=== PATIENT | female | born 1955 | race Caucasian/White ===

== ENCOUNTER → 2017-08-23 | Outpatient (REF) | payer OTHER | LOC: M LAB REF 15:48 | DX: R50.9 Fever, unspecified (principal); R05 Cough ==

== ENCOUNTER 2021-02-16 15:11 | Inpatient (IN) | payer MEDICARE, OTHER ==
[~2021-02-16] VITALS: Ht 170.2 cm; Wt 91.2 kg
[2021-02-16] MEDS ORDERED: NS 1,000 ML IV ONE (16:20)
[2021-02-16] MEDS ORDERED: RAMI1CAP21 PO (16:46)
[2021-02-16] MEDS ORDERED: ERGO500029 PO (16:46)
[2021-02-16 16:57] LABS: HEMATOCRIT 42.8 % (36.0-47.0); HEMOGLOBIN 14.5 g/dl (12.0-15.5); MEAN CORPUSCULAR HEMOGLOBIN 30.6 pg (27.0-33.0); MEAN CORPUSCULAR HGB CONC 33.9 g/dl (32.0-36.5); MEAN CORPUSCULAR VOLUME 90.3 fl (80.0-96.0); PLATELET COUNT, AUTOMATED 236 10^3/uL (150-450); RED BLOOD COUNT 4.74 10^6/uL (4.00-5.40); WHITE BLOOD COUNT 9.6 10^3/uL (4.0-10.0)
[2021-02-16 16:59] LABS: VENOUS BASE EXCESS 0.6 (-2.0-2.0); VENOUS HCO3 24.5 MEQ/L (23.0-27.0); VENOUS O2 SATURATION 97.4 % (60.0-80.0); VENOUS PARTIAL PRESSURE CO2 37.4 mmHg (38.0-50.0); VENOUS PARTIAL PRESSURE O2 94.8 mmHg (30.0-50.0); VENOUS PH 7.435 UNITS (7.330-7.430); VENOUS TOTAL CO2 25.7 MEQ/L (24.0-28.0)
[2021-02-16 17:22] LABS: HEMOGLOBIN A1c 12.1 %
[2021-02-16 17:26] LABS: CALCIUM LEVEL 9.6 MG/DL (8.8-10.2); CREATININE FOR GFR 1.44 MG/DL (0.55-1.30); GLOMERULAR FILTRATION RATE 38.9 (>45); POTASSIUM SERUM 5.3 MEQ/L (3.5-5.1)
[2021-02-16] MEDS ORDERED: HumuLIN R (REGULAR) INSULIN (NovoLIN R) **100U/ML** PER UNIT IV ONE (17:40)
[2021-02-16] MEDS ORDERED: MAALOX 30 ML SUSP *UDC PO PRN (17:50)
[2021-02-16] MEDS ORDERED: MOM 30ML SUSPENSION UDC PO PRN (17:50)
[2021-02-16] MEDS ORDERED: RAMI1CAP22 PO (17:50)
[2021-02-16] MEDS ORDERED: ACETAMINOPHEN TAB 650MG DOSE (2X325MG) PO PRN (17:50)
[2021-02-16] MEDS ORDERED: GLUCOSE 4GM CHEW TABLET PO PRN (17:55)
[2021-02-16] MEDS ORDERED: DEXTROSE 50% 50 ML SYRINGE IV PRN (17:55)
[2021-02-16] MEDS ORDERED: GLUCAGON INJ 1MG VIAL SC PRN (17:55)
--- NOTE | 2021-02-16 17:59 | REP ---
INDICATION: MEHUL. COMPARISON: Comparison chest x-ray is from January 24, 2006.. TECHNIQUE: Portable semi-erect AP chest radiograph. FINDINGS: EKG monitoring electrodes overlie the chest. The lungs are well inflated and clear. The pleural angles are sharp. Heart size is normal. Pulmonary vasculature is not increased. No acute bony abnormality is seen. IMPRESSION: No active disease. <Electronically signed by Huey Medrano > 02/16/21 [id number]
[2021-02-16] MEDS: hydrALAZINE 20MG/ML 1ML VIAL (J0360 PER 20MG) IV SCH (18:00)
[2021-02-16 18:13] LABS: ACETONE/KETONE 8.78 MG/DL (<2.81)
--- NOTE | 2021-02-16 18:13 | HPEPDOC ---
General Date of Admission Date of Service: Feb 16, 2021 Attending Physician: TANIYA LYNCH MD Chief Complaint The patient is a 65-year-old female admitted with a reason for visit of Blood Sugar Issue. Source: Patient Exam Limitations: No limitations Timing/Duration: Other (Unknown) History of Present Illness This is 65 years old female with past medical history of hypertension and history of multiple surgeries was seen by her medical doctor recently and was evaluated for diabetes mellitus as patient complaining of excessive thirst [place] and polyuria. Patient also has lost about 13 pounds recently she was supposed to see her doctor but he was not available so she ended up coming to the ER patient is being admitted with new onset diabetes mellitus. Home Medications Scheduled Ergocalciferol (Vitamin D2) (Vitamin D2) 50,000 Units Cap, 50,000 UNITS PO QWEEK, (Reported) WEDNESDAYS Ramipril (Ramipril) 2.5 Mg Capsule, 2.5 MG PO DAILY, (Reported) Allergies Coded Allergies: Penicillins (Verified Allergy, Unknown, HIVES, 02/16/21) Past Medical History Medical History Hypertension vitamin D deficiency,, benign pituitary adenoma Surgical History Tubal ligation, hysterectomy, tonsillectomy, Social History * Smoker: Denies Alcohol: Denies Drugs: denies A-FIB/CHADSVASC A-FIB History Current/History of A-Fib/PAF?: No Review of Systems Constitutional: Denies: Chills, Fever, Malaise, Night Sweats, Weakness, Fatigue, Weight Loss, Lethargy, Other Eyes: Denies: Pain, Vision change, Conjunctivae inflammation, Eyelid inflammation, Redness, Other ENT: Denies: Head Aches, Ear Pain, Dysphagia, Sinus Congestion, Post Nasal Drip, Sore Throat, Epistaxis, Other Symptoms Skin: Denies: Rash, Lesions, Jaundice, Bruising, Itching, Dry, Breakdown, Nail Changes, Other Pulmonary: Denies: Dyspnea, Cough, Pleuritic Chest Pain, Other Symptoms Cardiovascular: Denies: Chest Pain, Palpitations, Orthopnea, Paroxysmal Noc. Dyspnea, Edema, Lt Headedness, Other Symptoms Gastrointestinal: Denies: Nausea, Vomiting, Abdominal Pain, Diarrhea, Constipation, Melena, Hematochezia, Other Symptoms Genitourinary: Reports: Other Symptoms (Polyuria) Hematologic: Denies: Bruising, Bleeding Excessively, Petecchia, Purpura, Enlarged Lymph Nodes, Other Hematologic Endocrine: Reports: Polydipsia, Polyuria, Other Endocrine Sx (Weight loss) Musculoskeletal: Denies: Neck Pain, Back Pain, Shoulder Pain, Arm Pain, Hand Pain, Leg Pain, Foot Pain, Joint Pain, Muscle Pain, Spasms, Other Symptoms Neurological: Denies: Weakness, Numbness, Incoordination, Change in speech, Confusion, Seizures, Other Symptoms Psych: Denies: Mood Normal, Anxiety, Depression, Memory Issues, Thoughts of Self Harm, Anger, Thoughts of Harming Other, Other Psych Physical Examination General Exam: Positive: Alert, Cooperative Eye Exam: Positive: PERRLA ENT Exam: Positive: Atraumatic Neck Exam: Positive: Supple Heart Exam: Positive: Rate Normal, Normal S1, Normal S2 Abdomen Exam: Positive: Normal bowel sounds, Soft Extremity Exam: Positive: Other (No clubbing cyanosis or edema) Skin Exam: Positive: Nl turgor and temperature Neuro Exam: Positive: Other (No motor or sensory deficit noted) Psych Exam: Positive: Mood NL, Oriented x 3 Vital Signs Vital Signs Date Time Temp Pulse Resp B/P (MAP) Pulse Ox O2 Delivery O2 Flow Rate FiO2 02/16/21 17:21 176/91 (119) 02/16/21 17:11 91 92 02/16/21 16:40 16 Room Air 02/16/21 15:11 97.4 Laboratory Data Labs 24H Laboratory Tests 2 02/16/21 16:34: Nucleated Red Blood Cells % (auto) 0.0, Blood Gas Bicarbonate Standard 25.0, Venous Blood pH 7.435H, Venous Blood Partial Pressure CO2 37.4L, Venous Blood Partial Pressure O2 94.8H, Venous Blood Total Carbon Dioxide 25.7, Venous Blood HCO3 24.5, Venous Blood Oxygen Saturation 97.4H, Venous Blood Base Excess 0.6, Anion Gap 10, Glomerular Filtration Rate 38.9L, Estimated Mean Plasma Glucose 301H, Hemoglobin A1c 12.1, Calcium Level 9.6 CBC/BMP Laboratory Tests 02/16/21 16:34 Problems (1) New onset type 2 diabetes mellitus Status: Acute (2) Uncontrolled hypertension Status: Acute (3) MEHUL (acute kidney injury) Status: Acute Plan / VTE VTE Prophylaxis Ordered?: Yes Plan Plan This is 65 years old female with past medical history of hypertension and history of multiple surgeries was seen by her medical doctor recently and was evaluated for diabetes mellitus as patient complaining of excessive thirst, dry mouth and polyuria. Patient also has lost about 13 pounds in 1 month, she was supposed to see her doctor but he was not available so she ended up coming to the ER patient is being admitted with new onset diabetes mellitus. On examination patient's heart rate is 91, blood pressure 176/91 pulse ox 92 respiratory rate of 18 WBC count 9.6 hemoglobin 14.4 hematocrit 42.8 platelets 236 Electrolytes show sodium 123 most likely secondary to pseudohyponatremia, potassium is 5.3 BUN is 33 creatinine 1.44 AUGIE globin A1c is 12.1 In the ED patient received 1 L of normal saline and 8 units of regular insulin IV Admit patient to [facility] floor with telemetry secondary to uncontrolled hypertension IV fluids normal saline at 150 cc/h Start customized fingerstick blood sugar coverage as per orders Fingerstick blood sugar every 4 hours for at least 24 to 48 hours till the req uirement for insulin is calculated Also will start patient on Norvasc 5 mg p.o. now for hypertension as well as hydralazine as needed Once the patient's blood sugar is under control then I will decide whether she has to be placed on insulin or she can be discharged on oral hypoglycemic agents also depends on patient's input regarding this matter. We will hold SAUL inhibitor until her renal function improved we will restart it We will also get a lipid profile and start statins if needed Diet exercise counseling done DVT prophylaxis with the Lovenox Diet is diabetic diet Plan of care discussed with patient and her at the bedside TANIYA LYNCH MD Feb 16, 2021 18:12
[2021-02-16] MEDS: NS 1,000 ML IV SCH (18:42)
[2021-02-16] MEDS: amLODIPine 5 MG TAB PO SCH (18:43)
[2021-02-16 19:24] LABS: RSV AMPLIFICATION NEGATIVE (NEGATIVE)
[2021-02-16] MEDS ORDERED: HumaLOG INSULIN (NovoLOG) PER UNIT SC ONE (22:15)
[2021-02-16 23:08] LABS: VENOUS BASE EXCESS -1.4 (-2.0-2.0); VENOUS HCO3 23.2 MEQ/L (23.0-27.0); VENOUS O2 SATURATION 96.6 % (60.0-80.0); VENOUS PARTIAL PRESSURE CO2 38.8 mmHg (38.0-50.0); VENOUS PARTIAL PRESSURE O2 88.5 mmHg (30.0-50.0); VENOUS PH 7.394 UNITS (7.330-7.430); VENOUS STANDARD HCO3 23.3 MEQ/L; VENOUS TOTAL CO2 24.4 MEQ/L (24.0-28.0)
[2021-02-16 23:22] VITALS: BP 139/70
[2021-02-16 23:42] LABS: CALCIUM LEVEL 8.9 MG/DL (8.8-10.2); CREATININE FOR GFR 1.11 MG/DL (0.55-1.30); GLOMERULAR FILTRATION RATE 52.5 (>45); POTASSIUM SERUM 4.5 MEQ/L (3.5-5.1)
[2021-02-17] MEDS: hydrALAZINE 20MG/ML 1ML VIAL (J0360 PER 20MG) IV SCH
[2021-02-17] MEDS: HumaLOG INSULIN (NovoLOG) PER UNIT SC SCH ×5 (00:08→20:51)
[2021-02-17] MEDS: NS 1,000 ML IV SCH ×3 (00:09→13:47)
[2021-02-17 00:22] VITALS: BP 139/70
--- NOTE | 2021-02-17 05:37 | ECGEPIP ---
[facility] [place] - ED Test Date: 2021-02-16 Pat Name: PATY ARNETT Department: Room: [place] [address] Gender: Female [employer] Super[employer]: RUTH : 1955 Requested By: Mark Gonsalez Order Number: [id number] Reading MD: Levy Pereira Measurements Intervals [place] Rate: 88 P: 50 WA: 158 QRS: -33 QRSD: 92 T: 38 QT: 356 QTc: 430 Interpretive Statements Normal sinus rhythm Left axis deviation Comparison tracing not on file Electronically Signed on 02-17-2021 5:36:59 EDT by Levy Pereira
[2021-02-17 06:00] VITALS: BP 134/78
[2021-02-17 06:12] LABS: HEMATOCRIT 39.9 % (36.0-47.0); HEMOGLOBIN 13.5 g/dl (12.0-15.5); MEAN CORPUSCULAR HEMOGLOBIN 30.8 pg (27.0-33.0); MEAN CORPUSCULAR HGB CONC 33.8 g/dl (32.0-36.5); MEAN CORPUSCULAR VOLUME 91.1 fl (80.0-96.0); PLATELET COUNT, AUTOMATED 205 10^3/uL (150-450); RED BLOOD COUNT 4.38 10^6/uL (4.00-5.40); WHITE BLOOD COUNT 8.2 10^3/uL (4.0-10.0)
[2021-02-17 06:41] LABS: ALBUMIN 3.3 GM/DL (3.2-5.2); ALT/SGPT 89 U/L (12-78); BILIRUBIN,TOTAL 0.7 MG/DL (0.2-1.0); BLOOD UREA NITROGEN 21 MG/DL (7-18); CALCIUM LEVEL 8.5 MG/DL (8.8-10.2); CARBON DIOXIDE LEVEL 27 MEQ/L (21-32); CHLORIDE LEVEL 105 MEQ/L (98-107); CHOLESTEROL LEVEL 207 MG/DL (<200); CHOLESTEROL RISK RATIO 9.409 (<5); CREATININE FOR GFR 0.89 MG/DL (0.55-1.30); GLOMERULAR FILTRATION RATE > 60.0 (>45); GLUCOSE, FASTING 294 MG/DL (70-100); HDL CHOLESTEROL 22 MG/DL (>40); LDL CHOLESTEROL 108 MG/DL (<100); MAGNESIUM LEVEL 2.5 MG/DL (1.8-2.4); NON-HDL-C 185 MG/DL; SODIUM LEVEL 136 MEQ/L (136-145); TRIGLYCERIDES LEVEL 386 MG/DL (<150)
[2021-02-17] MEDS ORDERED: HumaLOG INSULIN (NovoLOG) PER UNIT SC SCH (07:30)
[2021-02-17 07:39] LABS: FREE T4 0.94 NG/DL (0.76-1.46)
[2021-02-17] MEDS: amLODIPine 5 MG TAB PO SCH (08:17)
[2021-02-17] MEDS: metFORMIN (GLUCOPHAGE) 500MG TAB PO SCH ×2 (08:17→17:36)
[2021-02-17] MEDS: ENOXAPARIN 40MG/0.4ML SYRINGE (J1650 PER 10MG) SC SCH (08:17)
--- NOTE | 2021-02-17 11:02 | IPNPDOC ---
Subjective Date Seen The patient was seen on 02/17/21. Subjective Chief Complaint/HPI Patient feels doing much better blood sugar is slowly decreasing General: Denies: ROS Unobtainable, Chills, Night Sweats, Fatigue, Malaise, Normal Appetite, Other Symptoms Constitutional: Denies: Chills, Fever, Malaise, Night Sweats, Weakness, Fatigue, Weight Loss, Lethargy, Other Pulmonary: Denies: Dyspnea, Cough, Pleuritic Chest Pain, Other Symptoms Cardiovascular: Denies: Chest Pain, Palpitations, Orthopnea, Paroxysmal Noc. Dyspnea, Edema, Lt Headedness, Other Symptoms Gastrointestinal: Denies: Nausea, Vomiting, Abdominal Pain, Diarrhea, Constipation, Melena, Hematochezia, Other Symptoms Musculoskeletal: Denies: Neck Pain, Back Pain, Shoulder Pain, Arm Pain, Hand Pain, Leg Pain, Foot Pain, Joint Pain, Muscle Pain, Spasms, Other Symptoms Neurological: Denies: Weakness, Numbness, Incoordination, Change in speech, Confusion, Seizures, Other Symptoms Objective Physical Examination General Exam: Positive: Alert, Cooperative Heart Exam: Positive: Rate Normal, Normal S1, Normal S2 Abdomen Exam: Positive: Normal bowel sounds, Soft Extremity Exam: Positive: Other (No clubbing cyanosis or edema) Skin Exam: Positive: Nl turgor and temperature Assessment /Plan Problems (1) New onset type 2 diabetes mellitus Status: Acute (2) Uncontrolled hypertension Status: Acute (3) MEHUL (acute kidney injury) Status: Acute Plan/VTE VTE Prophylaxis Ordered?: Yes Plan This is 65 years old female with past medical history of hypertension and history of multiple surgeries was seen by her medical doctor recently and was evaluated for diabetes mellitus as patient complaining of excessive thirst, dry mouth and polyuria. Patient also has lost about 13 pounds in 1 month, she was supposed to see her doctor but he was not available so she ended up coming to the ER patient is being admitted with new onset diabetes mellitus. On examination patient's heart rate is 91, blood pressure 176/91 pulse ox 92 respiratory rate of 18 WBC count 9.6 hemoglobin 14.4 hematocrit 42.8 platelets 236 Electrolytes show sodium 123 most likely secondary to pseudohyponatremia, potassium is 5.3 BUN is 33 creatinine 1.44 AUGIE globin A1c is 12.1 In the ED patient received 1 L of normal saline and 8 units of regular insulin IV Patient was admitted to [facility] floor with a custom written fingerstick blood sugar coverage Patient's last fingerstick was 293, and is progressively improving very well Patient has been started on lisinopril 5 mg p.o. daily as well as Glucophage 500 mg p.o. twice daily, Januvia 25 mg p.o. daily and Lipitor 10 mg p.o. daily I will continue IV fluids for 12 more hours then will DC'd as patient has good oral intake and her polydipsia and polyuria has significantly decreased with the treatment. Patient does have a history of pituitary adenoma we will get MRI without contrast to rule out any concurrent role of pituitary adenoma causing polyuria and polydipsia manifesting as diabetes insipidus. Diet exercise counseling done DVT prophylaxis with the Lovenox Diet is diabetic diet Plan of care discussed with patient at bedside VS, I&O, 24H, [place] Vital Signs/I&O Vital Signs Date Time Temp Pulse Resp B/P (MAP) Pulse Ox O2 Delivery O2 Flow Rate FiO2 02/17/21 08:17 74 146/60 02/17/21 06:00 97.9 20 96 Room Air I&O- Last 24 Hours up to 6 AM 02/17/21 06:00 Intake Total 3200 ml Output Total 650 ml Balance 2550 ml Laboratory Data 24H LABS Laboratory Tests 2 02/16/21 16:34: Nucleated Red Blood Cells % (auto) 0.0, Blood Gas Bicarbonate Standard 25.0, Venous Blood pH 7.435H, Venous Blood Partial Pressure CO2 37.4L, Venous Blood Partial Pressure O2 94.8H, Venous Blood Total Carbon Dioxide 25.7, Venous Blood HCO3 24.5, Venous Blood Oxygen Saturation 97.4H, Venous Blood Base Excess 0.6, Anion Gap 10, Glomerular Filtration Rate 38.9L, Estimated Mean Plasma Glucose 301H, Hemoglobin A1c 12.1, Calcium Level 9.6, B-Hydroxybutyrate 8.78H 02/16/21 18:32: Coronavirus (COVID-19)(PCR) NEGATIVE, Influenza Type A (RT-PCR) NEGATIVE, Influenza Type B (RT-PCR) NEGATIVE, Respiratory Syncytial Virus (PCR) NEGATIVE 02/16/21 20:50: Bedside Glucose (Misc Panel) 489H 02/16/21 22:57: Blood Gas Bicarbonate Standard 23.3, Venous Blood pH 7.394, Venous Blood Partial Pressure CO2 38.8, Venous Blood Partial Pressure O2 88.5H, Venous Blood Total Carbon Dioxide 24.4, Venous Blood HCO3 23.2, Venous Blood Oxygen Saturation 96.6H, Venous Blood Base Excess -1.4, Anion Gap 7L, Glomerular Filtration Rate 52.5, Calcium Level 8.9, Osmolality 313H 02/16/21 23:56: Bedside Glucose (Misc Panel) 505*H 02/17/21 04:15: Bedside Glucose (Misc Panel) 270H 02/17/21 05:59: Nucleated Red Blood Cells % (auto) 0.0, Anion Gap 4L, Glomerular Filtration Rate > 60.0, Calcium Level 8.5L, Magnesium Level 2.5H, Total Bilirubin 0.7, Aspartate Amino Transf (AST/SGOT) 41H, Alanine Aminotransferase (ALT/SGPT) 89H, Alkaline Phosphatase 100, Total Protein 6.0L, Albumin 3.3, Albumin/Globulin Ratio 1.2, Tr iglycerides Level 386H, Total Cholesterol 207H, LDL Cholesterol 108H, Non-HDL Cholesterol (LDL + VLDL) 185, Total HDL Cholesterol 22L, Cholesterol/HDL Ratio 9.409H, Thyroid Stimulating Hormone (TSH) 2.320, Free Thyroxine 0.94 02/17/21 06:21: Bedside Glucose (Misc Panel) 324H CBC/BMP Laboratory Tests 02/16/21 16:34 02/16/21 22:57 02/17/21 05:59 TANIYA LYNCH MD Feb 17, 2021 11:02
[2021-02-17] MEDS ORDERED: PILL CUTTER 1 EACH XX PRN (11:15)
--- NOTE | 2021-02-17 11:25 | REPVR ---
PROCEDURE INFORMATION: Exam: MR Head Without Contrast, Sella Exam date and time: 02/17/2021 9:33 AM Age: 65 years old Clinical indication: Condition or disease; Other: New onset type 2 dm, HX of pitiuitary adenoma; Patient HX: PT states HX of pituitary adenoma for 23yrs that has not changed. ; Additional info: HX of pitutary mass TECHNIQUE: Imaging protocol: MR of the head without contrast. Exam focused on the sella. COMPARISON: CT Head without contrast 12/24/2015 7:49 PM FINDINGS: Brain: There is mild patchy increased T2 signal intensity within the bilateral cerebral periventricular white matter, consistent with chronic microvascular ischemic changes. There are multiple small focal areas of chronic ischemia in bilateral frontal, parietal and periatrial white matter. Chronic ischemic changes/lacunar infarctions are seen in bilateral basal ganglia. There is no abnormal diffusion weighted signal intensity to suggest an acute ischemic event. Cerebral ventricles: The ventricular system is not dilated and is appropriate for the patient's age. Pituitary gland and sella: There is mild asymmetry in the height of the pituitary gland measuring 7 mm on the right and 5 mm on the left on coronal T1 weighted images. This could be secondary to the known history of pituitary microadenoma. However, the microadenoma is not seen on the current study as no intravenous contrast was administered. The pituitary stalk is in the midline. The suprasellar cistern and optic chiasm appear normal. The adjacent cavernous sinuses also appear normal. Bones/joints: Unremarkable. IMPRESSION: 1. No acute infarction, masses or hemorrhage is seen. No acute intracranial abnormality is identified. 2. Diffuse age-related cerebral atrophy and mild chronic microvascular white matter ischemic changes, without evidence of an acute intracranial abnormality. 3. There is mild asymmetry in the height of the pituitary gland measuring 7 mm on the right and 5 mm on the left on coronal T1 weighted images. This could be secondary to the known history of pituitary microadenoma. However, the microadenoma is not seen on the current study as no intravenous contrast was administered. The pituitary stalk is in the midline. The suprasellar cistern and optic chiasm appear normal. The adjacent cavernous sinuses also appear normal. Electronically signed by: Armen Barron On 02/17/2021 11:24:57 AM
[2021-02-17] MEDS ORDERED: PREVNAR 13 VACCINE SYRINGE IM ONE (12:00)
[2021-02-17] MEDS: ramipriL 5 MG CAP PO SCH (12:26)
[2021-02-17] MEDS: SITagliptin 50 MG TAB (JANUVIA) PO SCH (12:26)
[2021-02-17 14:00] VITALS: BP 130/74
[2021-02-17] MEDS: ATORVASTATIN 10 MG TAB PO SCH (20:51)
[2021-02-17 22:00] VITALS: BP 127/72
[2021-02-18] MEDS ORDERED: HumaLOG INSULIN (NovoLOG) PER UNIT SC ONE (05:40)
[2021-02-18 06:00] VITALS: BP 148/78
[2021-02-18 06:31] LABS: BASO % 0.4 % (0.0-1.0); EOS # 0.1 10^3/uL (0.0-0.5); HEMATOCRIT 39.5 % (36.0-47.0); HEMOGLOBIN 13.2 g/dl (12.0-15.5); LYMPH # 1.6 10^3/uL (1.5-5.0); LYMPH % 23.1 % (24.0-44.0); MEAN CORPUSCULAR HEMOGLOBIN 30.8 pg (27.0-33.0); MEAN CORPUSCULAR HGB CONC 33.4 g/dl (32.0-36.5); MEAN CORPUSCULAR VOLUME 92.1 fl (80.0-96.0); MONO # 0.5 10^3/uL (0.0-0.8); MONO % 6.8 % (2.0-8.0); NEUTROPHILS # 4.7 10^3/uL (1.5-8.5); NEUTROPHILS % 68.4 % (36.0-66.0); PLATELET COUNT, AUTOMATED 183 10^3/uL (150-450); RED BLOOD COUNT 4.29 10^6/uL (4.00-5.40); WHITE BLOOD COUNT 6.9 10^3/uL (4.0-10.0)
[2021-02-18 06:58] LABS: ALBUMIN 3.2 GM/DL (3.2-5.2); ALT/SGPT 137 U/L (12-78); BILIRUBIN,TOTAL 0.4 MG/DL (0.2-1.0); BLOOD UREA NITROGEN 12 MG/DL (7-18); CALCIUM LEVEL 8.5 MG/DL (8.8-10.2); CARBON DIOXIDE LEVEL 24 MEQ/L (21-32); CHLORIDE LEVEL 106 MEQ/L (98-107); CREATININE FOR GFR 0.84 MG/DL (0.55-1.30); GLOMERULAR FILTRATION RATE > 60.0 (>45); GLUCOSE, FASTING 383 MG/DL (70-100); POTASSIUM SERUM 4.4 MEQ/L (3.5-5.1); SODIUM LEVEL 134 MEQ/L (136-145); TOTAL PROTEIN 5.7 GM/DL (6.4-8.2)
[2021-02-18] MEDS: SITagliptin 50 MG TAB (JANUVIA) PO SCH (08:26)
[2021-02-18] MEDS: HumaLOG INSULIN (NovoLOG) PER UNIT SC SCH ×4 (08:26→21:16)
[2021-02-18] MEDS: metFORMIN (GLUCOPHAGE) 500MG TAB PO SCH ×2 (08:27→17:42)
[2021-02-18] MEDS: ENOXAPARIN 40MG/0.4ML SYRINGE (J1650 PER 10MG) SC SCH (08:29)
[2021-02-18] MEDS: amLODIPine 5 MG TAB PO SCH (08:29)
[2021-02-18] MEDS: ramipriL 5 MG CAP PO SCH (08:29)
--- NOTE | 2021-02-18 11:27 | IPNPDOC ---
Subjective Date Seen The patient was seen on 02/18/21. Subjective Chief Complaint/HPI Patient is comfortable in no distress her vision is improving as well as her frequency of 1 week duration and increased thirst is improving as well General: Denies: ROS Unobtainable, Chills, Night Sweats, Fatigue, Malaise, Normal Appetite, Other Symptoms Constitutional: Denies: Chills, Fever, Malaise, Night Sweats, Weakness, Fatigue, Weight Loss, Lethargy, Other Pulmonary: Denies: Dyspnea, Cough, Pleuritic Chest Pain, Other Symptoms Cardiovascular: Denies: Chest Pain, Palpitations, Orthopnea, Paroxysmal Noc. Dyspnea, Edema, Lt Headedness, Other Symptoms Gastrointestinal: Denies: Nausea, Vomiting, Abdominal Pain, Diarrhea, Const ipation, Melena, Hematochezia, Other Symptoms Musculoskeletal: Denies: Neck Pain, Back Pain, Shoulder Pain, Arm Pain, Hand Pain, Leg Pain, Foot Pain, Joint Pain, Muscle Pain, Spasms, Other Symptoms Neurological: Denies: Weakness, Numbness, Incoordination, Change in speech, Confusion, Seizures, Other Symptoms Objective Physical Examination General Exam: Positive: Alert, Cooperative Heart Exam: Positive: Rate Normal, Normal S1, Normal S2 Abdomen Exam: Positive: Normal bowel sounds, Soft Extremity Exam: Positive: Other (No clubbing cyanosis or edema) Skin Exam: Positive: Nl turgor and temperature Assessment /Plan Problems (1) New onset type 2 diabetes mellitus Status: Acute (2) Uncontrolled hypertension Status: Acute (3) MEHUL (acute kidney injury) Status: Acute Plan/VTE VTE Prophylaxis Ordered?: Yes Plan This is 65 years old female with past medical history of hypertension and history of multiple surgeries was seen by her medical doctor recently and was evaluated for diabetes mellitus as patient complaining of excessive thirst, dry mouth and polyuria. Patient also has lost about 13 pounds in 1 month, she was supposed to see her doctor but he was not available so she ended up coming to the ER patient is being admitted with new onset diabetes mellitus. On examination patient's heart rate is 91, blood pressure 176/91 pulse ox 92 respiratory rate of 18 WBC count 9.6 hemoglobin 14.4 hematocrit 42.8 platelets 236 Electrolytes show sodium 123 most likely secondary to pseudohyponatremia, potassium is 5.3 BUN is 33 creatinine 1.44 AUGIE globin A1c is 12.1 In the ED patient received 1 L of normal saline and 8 units of regular insulin IV Patient [facility] with a custom written fingerstick blood s ugar coverage Patient's fingersticks are still running higher, today's numbers were 288/389/335, which is not a good control IV fluids were DC'd as patient is not thirsty anymore her symptoms of polydipsia and polyuria are resolving as well as her vision is getting better Patient has been started on lisinopril 5 mg p.o. daily as well as Glucophage 500 mg p.o. twice daily, Januvia 25 mg p.o. daily and Lipitor 10 mg p.o. daily We will continue fingerstick blood sugar before every meal and at bedtime with coverage and will wait at least 48 hours to see how patient is responding to oral hypoglycemic agents including Januvia and Glucophage, if the fingerstick still remains higher after 48 hours then she probably will benefit from long- acting insulin regimen and discharged home on his such. Patient wanted to try oral meds first before she starts taking insulin regularly. MRI of the brain was obtained there is no evidence of micro adenoma I will provide patient with a report of her MRI and she can follow-up with her endocrine at [place]. We will request a dietary and diabetic education consultation DVT prophylaxis with the Lovenox Diet is diabetic diet Possible discharge Saturday VS, I&O, 24H, Fishbone Vital Signs/I&O Vital Signs Date Time Temp Pulse Resp B/P (MAP) Pulse Ox O2 Delivery O2 Flow Rate FiO2 02/18/21 08:29 147/76 02/18/21 08:29 69 02/18/21 06:00 97.8 16 95 Room Air I&O- Last 24 Hours up to 6 AM 02/18/21 06:00 Intake Total 2460 ml Output Total 950 ml Balance 1510 ml Laboratory Data 24H LABS Laboratory Tests 2 02/17/21 12:00: Bedside Glucose (Misc Panel) 292H 02/17/21 14:56: Bedside Glucose (Misc Panel) 299H 02/17/21 17:27: Bedside Glucose (Misc Panel) 323H 02/17/21 20:40: Bedside Glucose (Misc Panel) 288H 02/18/21 05:25: Bedside Glucose (Misc Panel) 389H 02/18/21 05:56: Immature Granulocyte % (Auto) 0.3, Neutrophils (%) (Auto) 68.4H, Lymphocytes (%) (Auto) 23.1L, Monocytes (%) (Auto) 6.8, Eosinophils (%) (Auto) 1.0, Basophils (%) (Auto) 0.4, Neutrophils # (Auto) 4.7, Lymphocytes # (Auto) 1.6, Monocytes # (Auto) 0.5, Eosinophils # (Auto) 0.1, Basophils # (Auto) 0.0, Nucleated Red Bl ood Cells % (auto) 0.0, Anion Gap 4L, Glomerular Filtration Rate > 60.0, Calcium Level 8.5L, Total Bilirubin 0.4, Aspartate Amino Transf (AST/SGOT) 85H, Alanine Aminotransferase (ALT/SGPT) 137H, Alkaline Phosphatase 91, Total Protein 5.7L, Albumin 3.2, Albumin/Globulin Ratio 1.3 02/18/21 08:12: Bedside Glucose (Misc Panel) 335H CBC/BMP Laboratory Tests 02/18/21 05:56 TANIYA LYNCH MD Feb 18, 2021 11:27
[2021-02-18] MEDS ORDERED: PREVNAR 13 VACCINE SYRINGE IM ONE (13:00)
[2021-02-18 14:00] VITALS: BP 134/69
[2021-02-18] MEDS: ATORVASTATIN 10 MG TAB PO SCH (21:16)
[2021-02-18 22:00] VITALS: BP 123/77
[2021-02-19 06:00] VITALS: BP 137/75
[2021-02-19 06:13] LABS: BASO % 0.3 % (0.0-1.0); EOS # 0.1 10^3/uL (0.0-0.5); EOS % 1.7 % (0.0-3.0); HEMATOCRIT 38.8 % (36.0-47.0); HEMOGLOBIN 13.3 g/dl (12.0-15.5); LYMPH % 27.5 % (24.0-44.0); MEAN CORPUSCULAR HGB CONC 34.3 g/dl (32.0-36.5); MEAN CORPUSCULAR VOLUME 90.4 fl (80.0-96.0); MONO # 0.5 10^3/uL (0.0-0.8); MONO % 7.5 % (2.0-8.0); NEUTROPHILS # 4.5 10^3/uL (1.5-8.5); NEUTROPHILS % 62.7 % (36.0-66.0); PLATELET COUNT, AUTOMATED 159 10^3/uL (150-450); RED BLOOD COUNT 4.29 10^6/uL (4.00-5.40); WHITE BLOOD COUNT 7.2 10^3/uL (4.0-10.0)
[2021-02-19 06:40] LABS: ALT/SGPT 123 U/L (12-78); BILIRUBIN,TOTAL 0.4 MG/DL (0.2-1.0); BLOOD UREA NITROGEN 14 MG/DL (7-18); CALCIUM LEVEL 8.6 MG/DL (8.8-10.2); CARBON DIOXIDE LEVEL 22 MEQ/L (21-32); CHLORIDE LEVEL 105 MEQ/L (98-107); CREATININE FOR GFR 0.75 MG/DL (0.55-1.30); GLOMERULAR FILTRATION RATE > 60.0 (>45); GLUCOSE, FASTING 360 MG/DL (70-100); POTASSIUM SERUM 4.2 MEQ/L (3.5-5.1); SODIUM LEVEL 133 MEQ/L (136-145); TOTAL PROTEIN 5.5 GM/DL (6.4-8.2)
[2021-02-19] MEDS: HumaLOG INSULIN (NovoLOG) PER UNIT SC SCH ×4 (08:07→20:29)
[2021-02-19] MEDS: SITagliptin 50 MG TAB (JANUVIA) PO SCH (08:08)
[2021-02-19] MEDS: metFORMIN (GLUCOPHAGE) 500MG TAB PO SCH ×2 (08:08→17:35)
[2021-02-19] MEDS: ENOXAPARIN 40MG/0.4ML SYRINGE (J1650 PER 10MG) SC SCH (08:09)
[2021-02-19] MEDS: ramipriL 5 MG CAP PO SCH (08:10)
[2021-02-19] MEDS: amLODIPine 5 MG TAB PO SCH (08:11)
[2021-02-19 14:00] VITALS: BP 113/62
--- NOTE | 2021-02-19 15:07 | IPNPDOC ---
Text Note Date of Service The patient was seen on 02/19/21. NOTE SUBJECTIVE: Patient reports multiple loose stools since starting Metformin including one episode of incontinence, otherwise denies n/v and states that her polyuria and polydipsia have resolved. PHYSICAL EXAMINATION: VITAL SIGNS: see below GENERAL APPEARANCE: Obese older female, sitting up in chair, NAD, appears younger than stated age. HEENT: Atraumatic, normocephalic. Eyes are anicteric. Mucous membranes are pink and moist CARDIOVASCULAR: NSR, regular rhythm, no noted murmurs LUNGS: CTAB ABDOMEN: Normoactive sounds, soft, nondistended. No rebound tenderness or guard ing. EXTREMITIES: No lower extremity edema, no apparent rashes/petechiae. NEUROLOGICAL: Awake, speech is clear, AOx3 LABORATORY STUDIES: See below RADIOLOGY STUDIES: No recent ASSESSMENT: Ms. Ovalle is a 65 year old morbidly obese female with newly diagnosed DM2 admitted for glucose management and insulin titration. PLAN: # DM2 with continued hyperglycemia: Patient has been started on Metformin and Januvia as well as ISS however continues to have FSBG over 300 despite use of 26U ISS in the past 24 hours. Have spoken with her about the need to initiate basal insulin which she agrees to. Will start this tonight at 15U ISS and likely transition to scheduled mealtime insulin. Patient's HA1c is 12 and have discussed with her the meaning of this value. Have also discussed importance of exercise in glucose management and alleviating insulin resistance as well as provided local resources for walking groups in [facility]. Patient has also been experiencing multiple loose bowel movements since starting Metformin. Will decrease dose to 250mg BID and see if this improves her symptoms. Meds: Metformin 250mg BID Januvia 25mg daily Levemir 15U QHS ISS AC/HS FSBG AC/HS Diabetic nurse educator Dietary consult # Obesity: Have discussed with patient importance of weight management to reduce insulin resistance in the setting of DM2. Also notified patient that metformin can help with weight loss. Dietary consult placed # HTN: Continue home Amlodipine, Ramipril # HLD: Continue home Atorvastatin DISPOSITION: Med/Surg DIET: consistent carbohydrate DVT PROPHY: Lovenox CONSULTS: Dietary DISCHARGE: d/c to home following improvement in FSBG, possible 1-2 more days VS,Fishbone, I+O VS, Fishbone, I+O Laboratory Tests 02/19/21 05:54 Vital Signs Date Time Temp Pulse Resp B/P (MAP) Pulse Ox O2 Delivery O2 Flow Rate FiO2 02/19/21 14:00 98.0 78 16 113/62 (79) 96 Room Air I&O- Last 24 Hours up to 6 AM 02/19/21 06:00 Intake Total 2030 ml Output Total 2375 ml Balance -345 ml RAQUEL MONTALVO MD [facility] Feb 19, 2021 15:07
[2021-02-19] MEDS: ATORVASTATIN 10 MG TAB PO SCH (20:27)
[2021-02-19] MEDS ORDERED: LEVEMIR (INSULIN DETEMIR) 1 UNITS/0.01ML SC SCH (21:00)
[2021-02-19 22:00] VITALS: BP 132/82
[2021-02-20 06:00] VITALS: BP 128/80
--- NOTE | 2021-02-20 07:22 | IPNPDOC ---
Text Note Date of Service The patient was seen on 02/20/21. NOTE SUBJECTIVE: Patient feels well, has multiple questions regarding diabetes care/diagnosis. Has not yet engaged with dietary counselors. She would like to have referral to [facility] in [place] upon discharge. PHYSICAL EXAMINATION: VITAL SIGNS: see below GENERAL APPEARANCE: Obese older female, sitting up in bed, NAD HEENT: Atraumatic, normocephalic. Eyes are anicteric. Mucous membranes are pink and moist CARDIOVASCULAR: NSR, regular rhythm, no noted murmurs LUNGS: CTAB ABDOMEN: Normoactive sounds, soft, nondistended. No rebound tenderness or guarding. EXTREMITIES: No lower extremity edema, no apparent rashes/petechiae. NEUROLOGICAL: Awake, speech is clear, AOx3 LABORATORY STUDIES: See below RADIOLOGY STUDIES: No recent ASSESSMENT: Ms. Ovalle is a 65 year old morbidly obese female with newly diagnosed DM2 admitted for glucose management and insulin titration. PLAN: # DM2 with continued hyperglycemia: Patient has been started on Metformin and Januvia as well as ISS however continues to have AM blood drawn glucose reading over 300 despite increased Levemir dosing and multiple ISS doses. Will have to increase morning Levemir following calculation of ISS required over 24 hours, though anticipate >30U daily Levemir will be required. Diarrhea has resolved since decreasing Metformin. May be able to increase this again as outpatient after she has adjusted to this medication. Spoke with her about importance of scheduling dilated eye exam and monitoring HA1c with PCM. Meds: Metformin 250mg BID Januvia 25mg daily Levemir 20U daily ISS AC/HS FSBG AC/HS Diabetic nurse educator Dietary consult # Obesity: Have discussed with patient importance of weight management to reduce insulin resistance in the setting of DM2. Also notified patient that metformin can help with weight loss. Dietary consult placed # LFT abnormalities: Patient has ALT>AST with mild elevation of both and normal Alk Phos. Hepatitis panel is negative. RUQUS pending. Anticipate ZEPEDA given metabolic disorder and obesity, however patient has never had LFTs performed in this system and therefore unclear of chronicity or etiology at this time. Meds: None RUQUS NPO at MN # HTN: Continue home Amlodipine, Ramipril # HLD: Continue home Atorvastatin DISPOSITION: Med/Surg DIET: consistent carbohydrate DVT PROPHY: Lovenox CONSULTS: Dietary DISCHARGE: d/c to home anticipated in 24-48H VS,Fishbone, I+O VS, Fishbone, I+O Vital Signs Date Time Temp Pulse Resp B/P (MAP) Pulse Ox O2 Delivery O2 Flow Rate FiO2 02/20/21 06:00 97.9 80 18 128/80 (96) 97 Room Air I&O- Last 24 Hours up to 6 AM 02/20/21 06:00 Intake Total 1380 ml Output Total 2825 ml Balance -1445 ml RAQUEL MONTALVO MD [facility] Feb 20, 2021 07:22
[2021-02-20] MEDS: LEVEMIR (INSULIN DETEMIR) 1 UNITS/0.01ML SC SCH (08:28)
[2021-02-20] MEDS: ENOXAPARIN 40MG/0.4ML SYRINGE (J1650 PER 10MG) SC SCH (08:28)
[2021-02-20] MEDS: HumaLOG INSULIN (NovoLOG) PER UNIT SC SCH ×4 (08:28→21:27)
[2021-02-20] MEDS: SITagliptin 50 MG TAB (JANUVIA) PO SCH (08:29)
[2021-02-20] MEDS: metFORMIN (GLUCOPHAGE) 500MG TAB PO SCH ×2 (08:29→18:18)
[2021-02-20] MEDS: amLODIPine 5 MG TAB PO SCH (08:31)
[2021-02-20] MEDS: ramipriL 5 MG CAP PO SCH (08:31)
[2021-02-20 10:57] LABS: HEPATITIS A ANTIBODY IGM NEGATIVE (NEGATIVE); HEPATITIS B CORE ANTIBODY IGM NEGATIVE (NEGATIVE); HEPATITIS B SURFACE ANTIGEN NEGATIVE (NEGATIVE); HEPATITIS C VIRUS ABY INDEX 0.1 INDEX (<0.8)
[2021-02-20 14:00] VITALS: BP 131/67
[2021-02-20] MEDS: ATORVASTATIN 10 MG TAB PO SCH (21:26)
[2021-02-20 22:00] VITALS: BP 118/76
[2021-02-21 06:00] VITALS: BP 127/84
--- NOTE | 2021-02-21 08:13 | REP ---
INDICATION: ALT>AST elevation and new onset DM2. COMPARISON: None. TECHNIQUE: Right upper quadrant sonography. FINDINGS: Scanning through the right upper quadrant of the abdomen demonstrates a normal sized, thin-walled gallbladder without evidence of stone or polyp. Common bile duct is normal measuring 0.4 cm in greatest diameter. No focal liver lesion is seen. Liver size is normal. The pancreatic tail is obscured by abdominal gas. No pancreatic abnormality is observed. No right renal abnormality is seen. There is no evidence of ascites. The right kidney measures 10.4 x 5.1 x 5.0 cm. IMPRESSION: Negative right upper quadrant sonography. <Electronically signed by Huey Medrano > 02/21/21 [id number]
[2021-02-21] MEDS: HumaLOG INSULIN (NovoLOG) PER UNIT SC SCH ×4 (08:31→20:55)
[2021-02-21] MEDS: ramipriL 5 MG CAP PO SCH (08:32)
[2021-02-21] MEDS: LEVEMIR (INSULIN DETEMIR) 1 UNITS/0.01ML SC SCH (08:32)
[2021-02-21] MEDS: metFORMIN (GLUCOPHAGE) 500MG TAB PO SCH ×2 (08:32→17:50)
[2021-02-21] MEDS: ENOXAPARIN 40MG/0.4ML SYRINGE (J1650 PER 10MG) SC SCH (08:32)
[2021-02-21] MEDS: SITagliptin 50 MG TAB (JANUVIA) PO SCH (08:33)
[2021-02-21] MEDS: amLODIPine 5 MG TAB PO SCH (08:33)
[2021-02-21] MEDS ORDERED: LEVEMIR (INSULIN DETEMIR) 1 UNITS/0.01ML SC ONE ×2 (08:55→09:10)
[2021-02-21 09:46] LABS: HEMATOCRIT 40.8 % (36.0-47.0); HEMOGLOBIN 13.7 g/dl (12.0-15.5); MEAN CORPUSCULAR HEMOGLOBIN 30.3 pg (27.0-33.0); MEAN CORPUSCULAR HGB CONC 33.6 g/dl (32.0-36.5); MEAN CORPUSCULAR VOLUME 90.3 fl (80.0-96.0); PLATELET COUNT, AUTOMATED 198 10^3/uL (150-450); RED BLOOD COUNT 4.52 10^6/uL (4.00-5.40); WHITE BLOOD COUNT 6.9 10^3/uL (4.0-10.0)
[2021-02-21 10:12] LABS: BLOOD UREA NITROGEN 10 MG/DL (7-18); CALCIUM LEVEL 8.9 MG/DL (8.8-10.2); CARBON DIOXIDE LEVEL 27 MEQ/L (21-32); CHLORIDE LEVEL 104 MEQ/L (98-107); CREATININE FOR GFR 0.81 MG/DL (0.55-1.30); GLOMERULAR FILTRATION RATE > 60.0 (>45); GLUCOSE, FASTING 302 MG/DL (70-100); POTASSIUM SERUM 4.1 MEQ/L (3.5-5.1); SODIUM LEVEL 136 MEQ/L (136-145)
[2021-02-21 14:00] VITALS: BP 123/76
--- NOTE | 2021-02-21 19:46 | IPNPDOC ---
Date Seen The patient was seen on 02/21/21. Progress Note SUBJECTIVE: Patient appear anxious about her insulin usage. Comfortable, denies any physical complaints. BS remains in 200-300s range. OBJECTIVE PHYSICAL EXAMINATION: VITAL SIGNS: Please see below. General: No acute distress, Alert Eyes: Normal sclera, EOMI HENT: Atraumatic Cardiovascular: Normal rate, normal rhythm. Pulmonary: Clear to auscultation b/l, no wheezing GI: Soft, nontender, nondistended Skin: Warm and dry Neuro: CN grossly intact. No focal deficits. Strengths equal b/l. Psych: oriented x 3 LABORATORY DATA, IMAGING STUDIES, MICROBIOLOGY: Please see below. ASSESSMENT AND PLAN: 1. Newly diagnosed DM - BS decreased to 200-300s compare to >600 on presentation. - Metformin dosed reduced due to diarrhea but will change to extended release and bring back to 500mg BID. - Januvia 25mg and increase Levemir to 30 units daily from 20. BS still uncontrolled. - Will give additional 10 units today and monitor overnight. Expect to discharge tomorrow. 2. LFT abnormalities - Hepatitis panel negative. - RUQ US without any significant findings. f/u with PCP. 3. HTN - c/w home med amlodipine and ramipril. 4. HLD - atorvastatin. 5. Pituitary tumor hx? - MRI on this admission does not show notable mass. - f/u outpatient. DISPOSITION: Likely home tomorrow. VS, I&O, 24H, Fishbone Vital Signs/I&O Vital Signs Date Time Temp Pulse Resp B/P (MAP) Pulse Ox O2 Delivery O2 Flow Rate FiO2 02/21/21 14:00 97.3 76 18 123/76 (92) 97 Room Air I&O- Last 24 Hours up to 6 AM 02/21/21 06:00 Intake Total 2180 ml Output Total 1750 ml Balance 430 ml Laboratory Data 24H LABS Laboratory Tests 2 02/20/21 20:31: Bedside Glucose (Misc Panel) 260H 02/21/21 05:55: Bedside Glucose (Misc Panel) 257H 02/21/21 09:32: Nucleated Red Blood Cells % (auto) 0.0, Anion Gap 5L, Glomerular Filtration Rate > 60.0, Calcium Level 8.9 02/21/21 11:48: Bedside Glucose (Misc Panel) 396H 02/21/21 16:53: Bedside Glucose (Misc Panel) 306H CBC/BMP Laboratory Tests 02/21/21 09:32 FRANKI TYLER MD Feb 21, 2021 19:46
[2021-02-21 20:40] VITALS: BP 126/75
[2021-02-21] MEDS: ATORVASTATIN 10 MG TAB PO SCH (20:55)
[2021-02-22 06:00] VITALS: BP 132/75
[2021-02-22] MEDS ORDERED: LEVEMIR (INSULIN DETEMIR) 1 UNITS/0.01ML SC SCH ×2 (09:00)
[2021-02-22] MEDS: HumaLOG INSULIN (NovoLOG) PER UNIT SC SCH ×3 (09:06→17:28)
[2021-02-22] MEDS: SITagliptin 50 MG TAB (JANUVIA) PO SCH (09:06)
[2021-02-22] MEDS: amLODIPine 5 MG TAB PO SCH (09:07)
[2021-02-22] MEDS: ENOXAPARIN 40MG/0.4ML SYRINGE (J1650 PER 10MG) SC SCH (09:07)
[2021-02-22 09:42] LABS: BLOOD UREA NITROGEN 12 MG/DL (7-18); CARBON DIOXIDE LEVEL 28 MEQ/L (21-32); CHLORIDE LEVEL 102 MEQ/L (98-107); CREATININE FOR GFR 0.84 MG/DL (0.55-1.30); GLOMERULAR FILTRATION RATE > 60.0 (>45); GLUCOSE, FASTING 362 MG/DL (70-100); POTASSIUM SERUM 4.5 MEQ/L (3.5-5.1); SODIUM LEVEL 134 MEQ/L (136-145)
[2021-02-22 10:25] VITALS: BP 135/75
[2021-02-22] MEDS: metFORMIN XR 500MG TAB *GLUCOPHAGE XR PO SCH ×2 (10:25→17:27)
[2021-02-22] MEDS: ramipriL 5 MG CAP PO SCH (10:25)
[2021-02-22] MEDS ORDERED: HumuLIN R (REGULAR) INSULIN (NovoLIN R) **100U/ML** PER UNIT SC STA (12:38)
[2021-02-22] MEDS ORDERED: TOUJ1.2I SC (13:27)
[2021-02-22] MEDS ORDERED: AMLO1TAB24 PO (13:27)
[2021-02-22] MEDS ORDERED: Pill Cutter XX (13:27)
[2021-02-22] MEDS ORDERED: SITA50TAB PO (13:27)
[2021-02-22] MEDS ORDERED: METF-838 PO (13:27)
[2021-02-22] MEDS ORDERED: ATOR1TAB19 PO (13:27)
[2021-02-22] MEDS ORDERED: PEN1MIS21 SC (13:29)
[2021-02-22] MEDS ORDERED: BLOOKIT21 XX (13:29)
[2021-02-22] MEDS ORDERED: ALCOPAD25 TOP (13:29)
[2021-02-22] MEDS ORDERED: GLUC1TES2 XX (13:29)
[2021-02-22] MEDS ORDERED: LANC30MI XX (13:29)
[2021-02-22] MEDS ORDERED: INSUHUMDS SC ×2 (13:38)
[2021-02-22 14:00] VITALS: BP 119/62
--- NOTE | 2021-02-22 15:46 | DS.PDOC ---
Discharge Summary General Date of Admission Feb 16, 2021 at 15:12 Date of Discharge 02/22/21 Discharge Summary PROCEDURES PERFORMED DURING STAY: [None]. ADMITTING DIAGNOSES: 1. New onset DM DISCHARGE DIAGNOSES: 1. New onset DM COMPLICATIONS/CHIEF COMPLAINT: New Onset Type 2 Diabetes Mellitus. HISTORY OF PRESENT ILLNESS: Dr. Farley: "This is 65 years old female with past medical history of hypertens ion and history of multiple surgeries was seen by her medical doctor recently and was evaluated for diabetes mellitus as patient complaining of excessive thirst [place] and polyuria. Patient also has lost about 13 pounds recently she was supposed to see her doctor but he was not available so she ended up coming to the ER patient is being admitted with new onset diabetes mellitus." HOSPITAL COURSE: Patient started on PO as well as insulin for BS control. She was started at a lower dose Levemir and had to be titrated up slowly until it is <200. Metformin was initially giving patient profuse diarrhea and had to be change to ER with now resolution of diarrhea. She is in the process of switching to a different PCP due to distance from home and ease of visit and will be establishing with Dr. Harris's practice. Unfortunately, won't be able to get in for another 2 weeks, she is instructed to continue to follow with her current PCP for the time being given that she needs assistance with insulin/new onset DM management. Patient requested a number of referrals, unfortunately are usually done through outpatient PCP's office. She has a history of pituitary adenoma, MRI on this admission does not show. DISCHARGE MEDICATIONS: Please see below. ALLERGIES: Please see below. PHYSICAL EXAMINATION ON DISCHARGE: VITAL SIGNS: Please see below. General: No acute distress, Alert Eyes: Normal sclera, EOMI, JANESSA HENT: Atraumatic Cardiovascular: Normal rate, normal rhythm. Pulmonary: Clear to auscultation b/l, no wheezing GI: Soft, nontender, nondistended Skin: Warm and dry Neuro: CN grossly intact. No focal deficits. Strengths equal b/l. Psych: oriented x 3 LABORATORY DATA: Please see below. IMAGING: CXR- No active disease. Brain MRI-1. No acute infarction, masses or hemorrhage is seen. No acute intracranial abnormality is identified. 2. Diffuse age-related cerebral atrophy and mild chronic microvascular white matter ischemic changes, without evidence of an acute intracranial abnormality. 3. There is mild asymmetry in the height of the pituitary gland measuring 7 mm on the right and 5 mm on the left on coronal T1 weighted images. This could be secondary to the known history of pituitary microadenoma. However, the microadenoma is not seen on the current study as no intravenous contrast was administered. The pituitary stalk is in the midline. The suprasellar cistern and optic chiasm appear normal. The adjacent cavernous sinuses also appear normal. Liver US- Negative right upper quadrant sonography. ACTIVITY: [As tolerated]. DIET: Consistent carbohydrate DISCHARGE PLAN: Start on insulin regimen as well as PO glycemic medications. F/u PCP within 1 week while waiting to establish with new PCP. Need referrals to optho, health educator and diabetic center that patient requested through PCP. DISPOSITION: Home. DISCHARGE INSTRUCTIONS: Start on insulin regimen as well as PO glycemic medications. F/u PCP within 1 week while waiting to establish with new PCP. Need referrals to optho, health educator and diabetic center that patient requested through PCP. ITEMS TO FOLLOWUP ON ON OUTPATIENT: None DISCHARGE CONDITION: [Stable]. TIME SPENT ON DISCHARGE: 45 minutes. Vital Signs/I&Os Vital Signs Date Time Temp Pulse Resp B/P (MAP) Pulse Ox O2 Delivery O2 Flow Rate FiO2 02/22/21 10:25 135/75 02/22/21 09:07 83 02/22/21 06:00 97.4 18 97 Room Air I&O- Last 24 Hours up to 6 AM 02/22/21 05:59 Intake Total 1400 ml Output Total 2050 ml Balance -650 ml Laboratory Data Labs 24H Laboratory Tests 2 02/21/21 16:53: Bedside Glucose (Misc Panel) 306H 02/21/21 20:36: Bedside Glucose (Misc Panel) 234H 02/22/21 06:47: Bedside Glucose (Misc Panel) 255H 02/22/21 09:05: Anion Gap 4L, Glomerular Filtration Rate > 60.0, Calcium Level 9.0 02/22/21 11:52: Bedside Glucose (Misc Panel) 280H 02/22/21 14:53: Bedside Glucose (Misc Panel) 184H CBC/BMP Laboratory Tests 02/22/21 09:05 FSBS Laboratory Tests Test 02/21/21 16:53 02/21/21 20:36 02/22/21 06:47 02/22/21 11:52 Range/Units Bedside Glucose (Misc Panel) 306 234 255 280 80-115 MG/DL Test 02/22/21 14:53 Range/Units Bedside Glucose (Misc Panel) 184 80-115 MG/DL Discharge Medications Scheduled Amlodipine Besylate (Amlodipine Besylate) 5 Mg Tablet, 5 MG PO DAILY Atorvastatin Calcium (Atorvastatin Calcium) 10 Mg Tablet, 10 MG PO QHS Blood Sugar Diagnostic (Advanced Glucose Test Strips) 1 Each Strip, 1 STRIP XX ASDIRECTED Ergocalciferol (Vitamin D2) (Vitamin D2) 50,000 Units Cap, 50,000 UNITS PO QWEEK, (Reported) WEDNESDAYS Insulin Glargine,Hum.rec.anlog ([place] Solostar) 300 Unit/1 Ml Insuln.pen, 45 UNIT SC DAILY Insulin Human Lispro (Humalog) 100 Unit/1 Ml Vial, 0 UNITS SC AC Insulin Human Lispro (Humalog) 100 Unit/1 Ml Vial, 0 UNITS SC QHS Metformin HCl (Metformin HCl ER) 500 Mg Tab.er.24h, 500 MG PO BID@0800,1800 Ramipril (Ramipril) 2.5 Mg Capsule, 2.5 MG PO DAILY, (Reported) Sitagliptin (Januvia) 50 Mg Tablet, 25 MG PO DAILY Scheduled PRN [Pill Cutter] 1 EACH EA, 1 EACH XX ASDIRECTED PRN for TO SPLIT MEDICATION Allergies Coded Allergies: Penicillins (Verified Allergy, Unknown, HIVES, 02/16/21) FRANKI TYLER MD Feb 22, 2021 15:45
[2021-02-23] MEDS ORDERED: LEVEMIR (INSULIN DETEMIR) 1 UNITS/0.01ML SC SCH (09:00)
== END 2021-02-22 19:05 | disposition home health service (06) | DRG 638 ==
LOC: M ED 15:11 → M ED INP 15:12 → M MSPAV 02-17 00:22 → OBSVTOIN 02-20 09:50 → UNDODISOB 02-22 19:05
PROVIDERS: ADMIT Internal Medicine; ATTEND Student in an Organized Health Care Education/Training Program
DX: E11.65 Type 2 diabetes mellitus with hyperglycemia (principal); N17.9 Acute kidney failure, unspecified; I10 Essential (primary) hypertension; E55.9 Vitamin D deficiency, unspecified; R19.7 Diarrhea, unspecified; R63.4 Abnormal weight loss; T38.3X5A Adverse effect of insulin and oral hypoglycemic [antidiabetic] drugs, initial encounter; E66.9 Obesity, unspecified; Z88.0 Allergy status to penicillin; Z79.899 Other long term (current) drug therapy; Z68.31 Body mass index [BMI] 31.0-31.9, adult

== ENCOUNTER → 2021-05-18 | Outpatient (REF) | payer MEDICARE, OTHER ==
[~2021-05-18] MED LIST: ALCOPAD25 TOP; AMLO1TAB24 PO; ATOR1TAB19 PO; BLOOKIT21 XX; ERGO500029 PO; GLUC1TES2 XX; INSUHUMDS SC; LANC30MI XX; METF-838 PO; PEN1MIS21 SC; Pill Cutter XX; RAMI1CAP21 PO; RAMI1CAP22 PO; SITA50TAB PO; TOUJ1.2I SC
[2021-05-18 14:08] LABS: HEMATOCRIT 42.6 % (36.0-47.0); MEAN CORPUSCULAR HEMOGLOBIN 30.3 pg (27.0-33.0); MEAN CORPUSCULAR HGB CONC 32.9 g/dl (32.0-36.5); MEAN CORPUSCULAR VOLUME 92.2 fl (80.0-96.0); PLATELET COUNT, AUTOMATED 266 10^3/uL (150-450); RED BLOOD COUNT 4.62 10^6/uL (4.00-5.40); WHITE BLOOD COUNT 7.5 10^3/uL (4.0-10.0)
[2021-05-18 14:43] LABS: ALBUMIN 3.8 GM/DL (3.2-5.2); ALT/SGPT 46 U/L (12-78); BILIRUBIN,TOTAL 0.6 MG/DL (0.2-1.0); BLOOD UREA NITROGEN 16 MG/DL (7-18); CALCIUM LEVEL 9.6 MG/DL (8.8-10.2); CARBON DIOXIDE LEVEL 26 MEQ/L (21-32); CHLORIDE LEVEL 110 MEQ/L (98-107); CREATININE FOR GFR 0.76 MG/DL (0.55-1.30); FREE T4 0.91 NG/DL (0.76-1.46); GLOMERULAR FILTRATION RATE > 60.0 (>45); GLUCOSE, FASTING 74 MG/DL (70-100); POTASSIUM SERUM 4.1 MEQ/L (3.5-5.1); SODIUM LEVEL 142 MEQ/L (136-145); TOTAL PROTEIN 6.9 GM/DL (6.4-8.2)
[2021-05-18 14:44] LABS: TOTAL 25(OH) VITAMIN D 38.4 NG/ML (30.0-100.0)
[2021-05-18 14:45] LABS: FOLATE 6.3 NG/ML; VITAMIN B12 LEVEL 315 PG/ML
[2021-05-18 14:53] LABS: MALB URINE SIEMENS 39.4 MG/L; MAU/CREAT RATIO 27.3 MCG/MG (0.0-30.0)
[2021-05-18 15:33] LABS: HEMOGLOBIN A1c 5.4 %
== END ==
LOC: M SFHCADAM 07:33
PROVIDERS: ATTEND Physician Assistant
DX: E11.65 Type 2 diabetes mellitus with hyperglycemia (principal); Z79.899 Other long term (current) drug therapy
CPT/HCPCS: 80053; 82043; 82306; 82607; 82746; 83036; 84439; 84443; 85027; G0463

== ENCOUNTER → 2021-09-04 | Outpatient (REF) | payer MEDICARE, OTHER | LOC: M SFHCADAM 08:03 | PROVIDERS: ATTEND Physician Assistant | DX: E11.9 Type 2 diabetes mellitus without complications (principal); I10 Essential (primary) hypertension; E78.00 Pure hypercholesterolemia, unspecified ==

== ENCOUNTER → 2021-11-29 | Outpatient (REF) | payer MEDICARE, OTHER ==
[2021-11-29 19:01] LABS: HEMOGLOBIN A1c 5.4 %
== END ==
LOC: M SFHCADAM 15:13
PROVIDERS: ATTEND Physician Assistant
DX: E78.00 Pure hypercholesterolemia, unspecified (principal); E11.9 Type 2 diabetes mellitus without complications; I10 Essential (primary) hypertension

== ENCOUNTER → 2022-02-06 | Outpatient (REF) | payer MEDICARE, OTHER | LOC: M SFHCADAM 13:58 | PROVIDERS: ATTEND Physician Assistant | DX: E11.9 Type 2 diabetes mellitus without complications (principal) ==

== ENCOUNTER → 2022-05-09 | Outpatient (REF) | payer MEDICARE, OTHER ==
[2022-05-09 18:41] LABS: HEMOGLOBIN A1c 5.4 %
[2022-05-09 19:08] LABS: BLOOD UREA NITROGEN 20 MG/DL (7-18); CALCIUM LEVEL 9.7 MG/DL (8.8-10.2); CARBON DIOXIDE LEVEL 27 MEQ/L (21-32); CHLORIDE LEVEL 108 MEQ/L (98-107); CREATININE FOR GFR 0.79 MG/DL (0.55-1.30); GLOMERULAR FILTRATION RATE > 60.0 (>45); GLUCOSE, FASTING 69 MG/DL (70-100); POTASSIUM SERUM 4.5 MEQ/L (3.5-5.1); SODIUM LEVEL 139 MEQ/L (136-145)
== END ==
LOC: M SFHCADAM 15:28
PROVIDERS: ATTEND Physician Assistant
DX: E11.9 Type 2 diabetes mellitus without complications (principal); I10 Essential (primary) hypertension; E78.00 Pure hypercholesterolemia, unspecified

== ENCOUNTER → 2022-08-21 | Outpatient (REF) | payer MEDICARE, OTHER ==
[2022-08-21 16:20] LABS: HEMATOCRIT 44.1 % (36.0-47.0); HEMOGLOBIN 14.4 g/dl (12.0-15.5); MEAN CORPUSCULAR HGB CONC 32.7 g/dl (32.0-36.5); MEAN CORPUSCULAR VOLUME 91.9 fl (80.0-96.0); PLATELET COUNT, AUTOMATED 284 10^3/uL (150-450); WHITE BLOOD COUNT 8.2 10^3/uL (4.0-10.0)
[2022-08-21 16:40] LABS: CREATININE, URINE 92.4 MG/DL; MAU/CREAT RATIO 12.9 MCG/MG (0.0-30.0)
[2022-08-21 18:21] LABS: ALKALINE PHOSPHATASE 93 U/L (46-116); ALT/SGPT 17 U/L (7.0-40); AST/SGOT 16 U/L (<34); BILIRUBIN,TOTAL 0.3 MG/DL (0.3-1.2); BLOOD UREA NITROGEN 25 MG/DL (9-23); CALCIUM LEVEL 9.7 MG/DL (8.3-10.6); CARBON DIOXIDE LEVEL 25 MMOL/L (20-31); CHLORIDE LEVEL 104 MMOL/L (98-107); CHOLESTEROL LEVEL 125 MG/DL (<200); CHOLESTEROL RISK RATIO 3.27 (<5); CREATININE FOR GFR 0.75 MG/DL (0.55-1.30); GLOMERULAR FILTRATION RATE > 60.0 (>45); GLUCOSE, FASTING 80 MG/DL (74-106); HDL CHOLESTEROL 38.2 MG/DL (>40); LDL CHOLESTEROL 59.2 MG/DL (<100); NON-HDL-C 87 MG/DL; POTASSIUM SERUM 4.8 MMOL/L (3.5-5.1); SODIUM LEVEL 139 MMOL/L (136-145); THYROID STIMULATING HORMONE 2.045 uIU/ML (0.55-4.78); TOTAL 25(OH) VITAMIN D 41.4 NG/ML (20.0-100.0); TOTAL PROTEIN 7.1 G/DL (5.7-8.2); TRIGLYCERIDES LEVEL 138 MG/DL (<150); VITAMIN B12 LEVEL 279 PG/ML (211-911)
[2022-08-21 18:23] LABS: FOLATE 8.6 NG/ML (>5.4)
[2022-08-21 18:30] LABS: FREE T4 0.85 NG/DL (0.89-1.76)
[2022-08-21 19:18] LABS: HEMOGLOBIN A1c 5.1 % (4.0-6.0)
== END ==
LOC: M SFHCADAM 11:25
PROVIDERS: ATTEND Physician Assistant
DX: E11.9 Type 2 diabetes mellitus without complications (principal); E78.00 Pure hypercholesterolemia, unspecified; I10 Essential (primary) hypertension; E55.9 Vitamin D deficiency, unspecified

== ENCOUNTER → 2023-01-28 | Outpatient (REF) | payer MEDICARE, OTHER ==
[2023-01-28 13:46] LABS: FREE T4 0.85 NG/DL (0.89-1.76)
[2023-01-28 13:47] LABS: THYROID STIMULATING HORMONE 2.478 uIU/ML (0.55-4.78)
[2023-01-28 14:05] LABS: HEMOGLOBIN A1c 5.3 % (4.0-6.0)
== END ==
LOC: M SFHCADAM 09:24
PROVIDERS: ATTEND Physician Assistant
DX: E11.9 Type 2 diabetes mellitus without complications (principal)

== ENCOUNTER → 2023-03-14 | Outpatient (REF) | payer MEDICARE, OTHER ==
[2023-03-14 13:29] LABS: BASO % 0.3 % (0.0-1.0); EOS # 0.3 10^3/uL (0.0-0.5); HEMATOCRIT 46.3 % (36.0-47.0); HEMOGLOBIN 15.2 g/dl (12.0-15.5); LYMPH # 1.9 10^3/uL (1.5-5.0); LYMPH % 14.4 % (24.0-44.0); MEAN CORPUSCULAR HEMOGLOBIN 30.3 pg (27.0-33.0); MEAN CORPUSCULAR HGB CONC 32.8 g/dl (32.0-36.5); MEAN CORPUSCULAR VOLUME 92.2 fl (80.0-96.0); MONO # 1.1 10^3/uL (0.0-0.8); MONO % 8.1 % (2.0-8.0); NEUTROPHILS # 9.9 10^3/uL (1.5-8.5); NEUTROPHILS % 74.6 % (36.0-66.0); PLATELET COUNT, AUTOMATED 333 10^3/uL (150-450); RED BLOOD COUNT 5.02 10^6/uL (4.00-5.40); WHITE BLOOD COUNT 13.2 10^3/uL (4.0-10.0)
[2023-03-14 13:53] LABS: ERYTHROCYTE SEDIMENTATION RATE 7 mm/hr (0-30)
[2023-03-14 13:57] LABS: ALBUMIN 4.2 G/DL (3.2-5.2); ALKALINE PHOSPHATASE 96 U/L (46-116); ALT/SGPT 16 U/L (7.0-40); AST/SGOT < 8 U/L (<34); BILIRUBIN,TOTAL 0.5 MG/DL (0.3-1.2); BLOOD UREA NITROGEN 29 MG/DL (9-23); C REACTIVE PROTEIN QUANTITATIV < 0.40 MG/DL (<1.0); CALCIUM LEVEL 10.6 MG/DL (8.3-10.6); CARBON DIOXIDE LEVEL 26 MMOL/L (20-31); CHLORIDE LEVEL 105 MMOL/L (98-107); CREATININE FOR GFR 0.87 MG/DL (0.55-1.30); GLOMERULAR FILTRATION RATE > 60.0 (>45); GLUCOSE, FASTING 94 MG/DL (74-106); POTASSIUM SERUM 4.6 MMOL/L (3.5-5.1); SODIUM LEVEL 139 MMOL/L (136-145); TOTAL PROTEIN 6.9 G/DL (5.7-8.2)
== END ==
LOC: M SFHCADAM 08:07
PROVIDERS: ATTEND Physician Assistant
DX: L23.9 Allergic contact dermatitis, unspecified cause (principal); B37.2 Candidiasis of skin and nail; R21 Rash and other nonspecific skin eruption

== ENCOUNTER → 2023-03-20 | Outpatient (REF) | payer MEDICARE, OTHER | LOC: M SFHCADAM 09:55 | PROVIDERS: ATTEND Nurse Practitioner Family | DX: R21 Rash and other nonspecific skin eruption (principal) ==

== ENCOUNTER → 2023-04-03 | Outpatient (REF) | payer MEDICARE, OTHER ==
[2023-04-03 17:12] LABS: BLOOD UREA NITROGEN 20 MG/DL (9-23); CALCIUM LEVEL 9.4 MG/DL (8.3-10.6); CARBON DIOXIDE LEVEL 24 MMOL/L (20-31); CHLORIDE LEVEL 106 MMOL/L (98-107); CREATININE FOR GFR 0.74 MG/DL (0.55-1.30); GLOMERULAR FILTRATION RATE > 60.0 (>45); GLUCOSE, FASTING 143 MG/DL (74-106); POTASSIUM SERUM 4.6 MMOL/L (3.5-5.1); SODIUM LEVEL 138 MMOL/L (136-145)
[2023-04-03 17:20] LABS: HEMOGLOBIN A1c 5.3 % (4.0-6.0)
== END ==
LOC: M SFHCADAM 15:00
PROVIDERS: ATTEND Physician Assistant
DX: I10 Essential (primary) hypertension (principal); E11.9 Type 2 diabetes mellitus without complications; E66.9 Obesity, unspecified; E78.00 Pure hypercholesterolemia, unspecified

== ENCOUNTER → 2023-08-06 | Outpatient (REF) | payer MEDICARE, OTHER ==
[~2023-08-06] MED LIST changes: +PEN-308 SC; -PEN1MIS21 SC
== END ==
LOC: M SFHCADAM 15:21
PROVIDERS: ATTEND Physician Assistant
DX: E11.9 Type 2 diabetes mellitus without complications (principal); I10 Essential (primary) hypertension; E78.00 Pure hypercholesterolemia, unspecified

== ENCOUNTER → 2023-08-08 | Outpatient (REF) | payer MEDICARE, OTHER ==
[2023-08-08 12:55] LABS: BASO % 0.4 % (0.0-1.0); EOS # 0.2 10^3/uL (0.0-0.5); HEMATOCRIT 42.9 % (36.0-47.0); HEMOGLOBIN 14.2 g/dl (12.0-15.5); LYMPH # 1.9 10^3/uL (1.5-5.0); LYMPH % 25.5 % (24.0-44.0); MEAN CORPUSCULAR HEMOGLOBIN 30.4 pg (27.0-33.0); MEAN CORPUSCULAR HGB CONC 33.1 g/dl (32.0-36.5); MEAN CORPUSCULAR VOLUME 91.9 fl (80.0-96.0); MONO # 0.7 10^3/uL (0.0-0.8); NEUTROPHILS # 4.7 10^3/uL (1.5-8.5); NEUTROPHILS % 62.8 % (36.0-66.0); PLATELET COUNT, AUTOMATED 266 10^3/uL (150-450); RED BLOOD COUNT 4.67 10^6/uL (4.00-5.40); WHITE BLOOD COUNT 7.5 10^3/uL (4.0-10.0)
[2023-08-08 13:21] LABS: HEMOGLOBIN A1c 5.5 % (4.0-6.0)
[2023-08-08 13:27] LABS: CREATININE, URINE 90.8 MG/DL; MAU/CREAT RATIO 23.1 MCG/MG (0.0-30.0)
[2023-08-08 13:29] LABS: ALBUMIN 3.9 G/DL (3.2-5.2); ALKALINE PHOSPHATASE 87 U/L (46-116); ALT/SGPT 17 U/L (7.0-40); AST/SGOT < 8 U/L (<34); BILIRUBIN,TOTAL 0.3 MG/DL (0.3-1.2); BLOOD UREA NITROGEN 20 MG/DL (9-23); CALCIUM LEVEL 9.7 MG/DL (8.3-10.6); CARBON DIOXIDE LEVEL 25 MMOL/L (20-31); CHLORIDE LEVEL 109 MMOL/L (98-107); CHOLESTEROL LEVEL 129 MG/DL (<200); CHOLESTEROL RISK RATIO 3.56 (<5); GLOMERULAR FILTRATION RATE > 60.0 (>45); GLUCOSE, FASTING 93 MG/DL (74-106); HDL CHOLESTEROL 36.2 MG/DL (>40); LDL CHOLESTEROL 66.4 MG/DL (<100); NON-HDL-C 92.8 MG/DL; POTASSIUM SERUM 4.5 MMOL/L (3.5-5.1); SODIUM LEVEL 139 MMOL/L (136-145); TOTAL PROTEIN 6.5 G/DL (5.7-8.2); TRIGLYCERIDES LEVEL 132 MG/DL (<150)
[2023-08-08 13:32] LABS: FREE T4 0.93 NG/DL (0.89-1.76)
[2023-08-08 13:33] LABS: FOLATE 11.7 NG/ML (>5.4); TOTAL 25(OH) VITAMIN D 50.1 NG/ML (20.0-100.0); VITAMIN B12 LEVEL 315 PG/ML (211-911)
== END ==
LOC: M SFHCADAM 07:48
PROVIDERS: ATTEND Physician Assistant
DX: Z00.00 Encounter for general adult medical examination without abnormal findings (principal); E11.65 Type 2 diabetes mellitus with hyperglycemia; E78.00 Pure hypercholesterolemia, unspecified; E55.9 Vitamin D deficiency, unspecified; I10 Essential (primary) hypertension; Z13.820 Encounter for screening for osteoporosis

== ENCOUNTER → 2023-11-18 | Outpatient (REF) | payer MEDICARE, OTHER ==
[2023-11-18 13:02] LABS: BLOOD UREA NITROGEN 19 MG/DL (9-23); CALCIUM LEVEL 9.5 MG/DL (8.3-10.6); CARBON DIOXIDE LEVEL 27 MMOL/L (20-31); CHLORIDE LEVEL 109 MMOL/L (98-107); CREATININE FOR GFR 0.72 MG/DL (0.55-1.30); GLOMERULAR FILTRATION RATE > 60.0 (>45); GLUCOSE, FASTING 84 MG/DL (74-106); POTASSIUM SERUM 4.6 MMOL/L (3.5-5.1); SODIUM LEVEL 143 MMOL/L (136-145)
[2023-11-18 13:07] LABS: TOTAL 25(OH) VITAMIN D 38.8 NG/ML (20.0-100.0)
[2023-11-18 13:29] LABS: HEMOGLOBIN A1c 4.9 % (4.0-6.0)
== END ==
LOC: M SFHCADAM 09:22
PROVIDERS: ATTEND Physician Assistant
DX: E11.9 Type 2 diabetes mellitus without complications (principal); S72.001D Fracture of unspecified part of neck of right femur, subsequent encounter for closed fracture with routine healing

== ENCOUNTER → 2024-03-02 | Outpatient (CLI) | payer MEDICARE, OTHER ==
[~2024-03-02] MED LIST changes: +RAMI1.258 PO; -RAMI1CAP21 PO; -RAMI1CAP22 PO; +RAMI2.5C42 PO
== END ==
LOC: M WHC 08:09
PROVIDERS: ATTEND Physician Assistant
DX: Z13.820 Encounter for screening for osteoporosis (principal); M85.852 Other specified disorders of bone density and structure, left thigh

== ENCOUNTER → 2024-03-17 | Outpatient (REF) | payer MEDICARE, OTHER ==
[2024-03-17 14:08] LABS: BLOOD UREA NITROGEN 20 MG/DL (9-23); CALCIUM LEVEL 9.5 MG/DL (8.3-10.6); CARBON DIOXIDE LEVEL 26 MMOL/L (20-31); CHLORIDE LEVEL 110 MMOL/L (98-107); CREATININE FOR GFR 0.79 MG/DL (0.55-1.30); GLOMERULAR FILTRATION RATE > 60.0 (>45); GLUCOSE, FASTING 90 MG/DL (74-106); POTASSIUM SERUM 4.4 MMOL/L (3.5-5.1); SODIUM LEVEL 143 MMOL/L (136-145)
[2024-03-17 14:37] LABS: HEMOGLOBIN A1c 5.2 % (4.0-6.0)
== END ==
LOC: M SFHCADAM 07:55
PROVIDERS: ATTEND Physician Assistant
DX: E11.9 Type 2 diabetes mellitus without complications (principal); I10 Essential (primary) hypertension; E55.9 Vitamin D deficiency, unspecified

== ENCOUNTER → 2024-07-08 | Outpatient (REF) | payer MEDICARE, OTHER ==
[2024-07-08 13:53] LABS: HEMOGLOBIN A1c 5.4 % (4.0-6.0)
== END ==
LOC: M SFHCADAM 07:25
PROVIDERS: ATTEND Physician Assistant
DX: I10 Essential (primary) hypertension (principal); E11.9 Type 2 diabetes mellitus without complications; E78.00 Pure hypercholesterolemia, unspecified; E55.9 Vitamin D deficiency, unspecified; Z87.81 Personal history of (healed) traumatic fracture; M85.80 Other specified disorders of bone density and structure, unspecified site

== ENCOUNTER → 2024-11-10 | Outpatient (REF) | payer MEDICARE, OTHER ==
[2024-11-10 14:05] LABS: HEMOGLOBIN 14.6 g/dl (12.0-15.5); MEAN CORPUSCULAR HEMOGLOBIN 30.1 pg (27.0-33.0); MEAN CORPUSCULAR HGB CONC 32.4 g/dl (32.0-36.5); MEAN CORPUSCULAR VOLUME 92.8 fl (80.0-96.0); PLATELET COUNT, AUTOMATED 272 10^3/uL (150-450); RED BLOOD COUNT 4.85 10^6/uL (4.00-5.40); WHITE BLOOD COUNT 6.8 10^3/uL (4.0-10.0)
[2024-11-10 14:10] LABS: HEMOGLOBIN A1c 5.1 % (4.0-6.0)
[2024-11-10 14:16] LABS: ALBUMIN 4.1 G/DL (3.2-5.2); ALKALINE PHOSPHATASE 112 U/L (35-104); ALT/SGPT 23 U/L (7.0-40); AST/SGOT 15 U/L (<34); BILIRUBIN,TOTAL 0.6 MG/DL (0.3-1.2); BLOOD UREA NITROGEN 20 MG/DL (9-23); CARBON DIOXIDE LEVEL 24 MMOL/L (20-31); CHLORIDE LEVEL 108 MMOL/L (98-107); CHOLESTEROL LEVEL 133 MG/DL (<200); CHOLESTEROL RISK RATIO 3.69 (<5); CREATININE FOR GFR 0.75 MG/DL (0.55-1.30); GLOMERULAR FILTRATION RATE > 60.0 (>45); GLUCOSE, FASTING 91 MG/DL (74-106); LDL CHOLESTEROL 70.6 MG/DL (<100); POTASSIUM SERUM 4.7 MMOL/L (3.5-5.1); SODIUM LEVEL 140 MMOL/L (136-145); TOTAL PROTEIN 7.1 G/DL (5.7-8.2); TRIGLYCERIDES LEVEL 132 MG/DL (<150)
[2024-11-10 14:17] LABS: FREE T4 0.92 NG/DL (0.89-1.76); THYROID STIMULATING HORMONE 3.537 uIU/ML (0.55-4.78)
[2024-11-10 14:18] LABS: VITAMIN B12 LEVEL 524 PG/ML (211-911)
[2024-11-10 14:27] LABS: MAU/CREAT RATIO 4.8 MCG/MG (0.0-30.0)
[2024-11-10 14:27] LABS: FOLATE 10.8 NG/ML (>5.4)
== END ==
LOC: M SFHCADAM 07:37
PROVIDERS: ATTEND Physician Assistant
DX: E11.9 Type 2 diabetes mellitus without complications (principal); R01.1 Cardiac murmur, unspecified; Z28.21 Immunization not carried out because of patient refusal; I10 Essential (primary) hypertension; E78.00 Pure hypercholesterolemia, unspecified; H93.8X2 Other specified disorders of left ear

== ENCOUNTER → 2024-11-20 | Outpatient (CLI) | payer MEDICARE, OTHER | LOC: M PLAIMG 07:22 | PROVIDERS: ATTEND Physician Assistant | DX: R01.1 Cardiac murmur, unspecified (principal); Z12.31 Encounter for screening mammogram for malignant neoplasm of breast; I50.30 Unspecified diastolic (congestive) heart failure ==

== ENCOUNTER → 2025-02-25 | Outpatient (REF) | payer MEDICARE, OTHER ==
[2025-02-25 14:15] LABS: ESTIMATED AVERAGE GLUCOSE 114.0 MG/DL (60-110)
== END ==
LOC: M SFHCADAM 07:36
PROVIDERS: ATTEND Physician Assistant
DX: Z00.00 Encounter for general adult medical examination without abnormal findings (principal); E11.9 Type 2 diabetes mellitus without complications; I10 Essential (primary) hypertension; E78.00 Pure hypercholesterolemia, unspecified

== ENCOUNTER → 2025-06-08 | Outpatient (REF) | payer MEDICARE, OTHER ==
[2025-06-08 13:39] LABS: CALCIUM LEVEL 9.7 MG/DL (8.3-10.6); CARBON DIOXIDE LEVEL 26.0 MMOL/L (20-31); CHLORIDE LEVEL 106.0 MMOL/L (98-107); CREATININE FOR GFR 0.87 MG/DL (0.55-1.30); GLOMERULAR FILTRATION RATE 71.6 (>39); POTASSIUM SERUM 4.4 MMOL/L (3.5-5.1); SODIUM LEVEL 142.0 MMOL/L (136-145)
[2025-06-08 14:03] LABS: ESTIMATED AVERAGE GLUCOSE 108.0 MG/DL (60-110)
== END ==
LOC: M SFHCADAM 07:07
PROVIDERS: ATTEND Physician Assistant
DX: I10 Essential (primary) hypertension (principal); E11.9 Type 2 diabetes mellitus without complications; E78.00 Pure hypercholesterolemia, unspecified; I35.0 Nonrheumatic aortic (valve) stenosis